=== PATIENT | female | born 1980 | race Caucasian/White ===

== ENCOUNTER 2019-05-27 08:08 | Emergency (ER) | payer SELFPAY ==
[~2019-05-27] VITALS: Ht 147.3 cm; Wt 53.5 kg
[2019-05-27 08:17] VITALS: TEMP 98.7
[2019-05-27] MEDS ORDERED: NORVASC 5MG5 MG/TAB PO (10:10)
[2019-05-27] MEDS ORDERED: NORCO 325 MG-51 TAB PO (10:10)
[2019-05-27 19:09] VITALS: BP 163/96; PULSE 80
== END 2019-05-27 10:40 | disposition home or self-care (01) ==
LOC: COL.ER 08:08
DX: S06.0X0A Concussion without loss of consciousness, initial encounter (principal); S00.03XA Contusion of scalp, initial encounter; I10 Essential (primary) hypertension; R40.2410 Glasgow coma scale score 13-15, unspecified time; W22.8XXA Striking against or struck by other objects, initial encounter; Y92.410 Unspecified street and highway as the place of occurrence of the external cause
CPT/HCPCS: J2405